=== PATIENT | male | born 1960 | race Caucasian/White ===

== ENCOUNTER 2018-01-15 12:53 | Emergency (ER) | payer MEDICARE, MEDICAID ==
[~2018-01-15] VITALS: Ht 172.7 cm; Wt 104.5 kg
[~2018-01-15 12:53] MED LIST: DOXE10CA2 PO; ESOM40CA PO; FERR142T6 PO; HYDR-3095 PO; LOP25T PO; NOR5T PO; NORT10CA81 CORPAK; OMEP-84 PO; TIZA4CAP6 PO
[2018-01-15 13:46] LABS: BASOPHILS # (AUTO) 0.1 X10'3 (0-0.2); BASOPHILS % (AUTO) 0.6 % (0-1); EOSINOPHILS # (AUTO) 0.3 X10'3 (0-0.9); EOSINOPHILS % (AUTO) 3.4 % (0-6); HEMATOCRIT 28.6 % (42.0-52.0); HEMOGLOBIN 9.2 g/dl (14.0-17.9); LYMPHOCYTES # (AUTO) 1.1 X10'3 (1.1-4.8); MEAN CORPUSCULAR HEMOGLOBIN 22.3 PG (27.0-31.0); MEAN CORPUSCULAR HGB CONC 32.1 % (33.0-36.5); MEAN CORPUSCULAR VOLUME 69.5 FL (78-98); MONOCYTES # (AUTO) 0.6 X10'3 (0-0.9); MONOCYTES % (AUTO) 6.3 % (2-12); NEUTROPHILS % (AUTO) 78.7 % (42-75); PLATELET COUNT 359 X10'3 (140-440); RED BLOOD COUNT 4.12 X10'6 (4.70-6.10); RED CELL DISTRIBUTION WIDTH 19.9 % (11.5-14.5); WHITE BLOOD COUNT 10.2 X10'3 (4.5-11.0)
[2018-01-15 13:55] LABS: PROTHROMBIN TIME 10.1 SECONDS (9.0-12.0)
[2018-01-15 14:00] LABS: ALANINE AMINOTRANSFERASE 18 U/L (12-78); ALBUMIN/GLOBULIN RATIO 0.7 (1.1-1.5); ALKALINE PHOSPHATASE 151 IU/L (46-116); ANION GAP 8 (8-16); ASPARTATE AMINO TRANSFERASE 21 U/L (10-37); BILIRUBIN,TOTAL 0.3 MG/DL (0.1-1.0); BLOOD UREA NITROGEN 6 MG/DL (7-18); BUN/CREATININE RATIO 5.5 (5.4-32.0); CALCIUM 9.6 MG/DL (8.5-10.1); CHLORIDE 99 MMOL/L (99-107); GLUCOSE 147 MG/DL (70-104); POTASSIUM 3.4 MMOL/L (3.5-5.1); SODIUM 138 MMOL/L (135-145); TOTAL CARBON DIOXIDE 30.7 MMOL/L (24-32); TOTAL PROTEIN 7.6 G/DL (6.4-8.2); eGFR 69 ML/MIN
[2018-01-15] MEDS ORDERED: normal saline 1000ML IV soln IVB ONE (14:05)
[2018-01-15] MEDS ORDERED: ondansetron 4mg rapidly disintigrating tab PO ONE (14:05)
[2018-01-15 14:25] LABS: ANISOCYTOSIS 2+; ELLIPTOCYTES FEW; HYPOCHROMASIA 1+; MICROCYTOSIS 2+; PLATELET ESTIMATE NORMAL; POIKILOCYTOSIS 1+
[2018-01-15 14:26] LABS: POLYCHROMASIA FEW; TEAR DROP CELLS 1+
[2018-01-15 14:27] LABS: STOMATOCYTES FEW
[2018-01-15 14:53] VITALS: BP 133/104
[2018-01-16 16:33] LABS: OCCULT BLOOD STOOL NEGATIVE (Neg)
== END 2018-01-15 15:22 | disposition home or self-care (01) ==
LOC: ER 12:54
DX: E86.0 Dehydration (principal); E87.6 Hypokalemia; R11.0 Nausea; G89.29 Other chronic pain; Z98.890 Other specified postprocedural states; Z79.899 Other long term (current) drug therapy
CPT/HCPCS: 36415; 80053; 82272; 85025; 85610; 86885; 86900; 86901; 96360; 99284; J7030; 86870; 86902; 86905

== ENCOUNTER 2018-05-21 13:44 | Inpatient (IN) | payer MEDICARE, MEDICAID ==
[~2018-05-21] VITALS: Ht 172.7 cm; Wt 105.9 kg
[2018-05-21 14:11] LABS: BASOPHILS # (AUTO) 0.1 X10'3 (0-0.2); BASOPHILS % (AUTO) 0.6 % (0-1); EOSINOPHILS # (AUTO) 0.3 X10'3 (0-0.9); EOSINOPHILS % (AUTO) 2.7 % (0-6); HEMATOCRIT 34.3 % (42.0-52.0); HEMOGLOBIN 11.2 g/dl (14.0-17.9); LYMPHOCYTES # (AUTO) 1.4 X10'3 (1.1-4.8); MEAN CORPUSCULAR HEMOGLOBIN 26.9 PG (27.0-31.0); MEAN CORPUSCULAR HGB CONC 32.7 % (33.0-36.5); MEAN CORPUSCULAR VOLUME 82.2 FL (78-98); MEAN PLATELET VOLUME 8.6 FL (7.4-10.4); MONOCYTES # (AUTO) 1.6 X10'3 (0-0.9); MONOCYTES % (AUTO) 14.9 % (2-12); NEUTROPHILS # (AUTO) 7.2 X10'3 (1.8-7.7); NEUTROPHILS % (AUTO) 68.8 % (42-75); PLATELET COUNT 275 X10'3 (140-440); RED BLOOD COUNT 4.18 X10'6 (4.70-6.10); RED CELL DISTRIBUTION WIDTH 15.8 % (11.5-14.5); WHITE BLOOD COUNT 10.5 X10'3 (4.5-11.0)
[2018-05-21 14:21] LABS: INR 1.1 INR; PARTIAL THROMBOPLASTIN TIME 28 SECONDS (22-32); PROTHROMBIN TIME 10.9 SECONDS (9.0-12.0)
[2018-05-21 14:27] LABS: ALANINE AMINOTRANSFERASE 16 U/L (12-78); ALBUMIN 2.9 G/DL (3.4-5.0); ALBUMIN/GLOBULIN RATIO 0.7 (1.1-1.5); ALKALINE PHOSPHATASE 157 IU/L (46-116); ANION GAP 8 (8-16); ASPARTATE AMINO TRANSFERASE 21 U/L (10-37); BILIRUBIN,TOTAL 0.3 MG/DL (0.1-1.0); BLOOD UREA NITROGEN 8 MG/DL (7-18); BUN/CREATININE RATIO 6.7 (5.4-32.0); CALCIUM 9.2 MG/DL (8.5-10.1); CHLORIDE 101 MMOL/L (99-107); CREATININE 1.19 MG/DL (0.60-1.10); GLUCOSE 88 MG/DL (70-104); SODIUM 138 MMOL/L (135-145); TOTAL CARBON DIOXIDE 28.6 MMOL/L (24-32); TOTAL PROTEIN 6.9 G/DL (6.4-8.2); eGFR 63 ML/MIN
[2018-05-21] MEDS ORDERED: potassium Cl 10 mEq/100mL bag IV ONE (14:45)
[2018-05-21 14:58] LABS: LIPASE 75 U/L (73-393)
[2018-05-21] MEDS ORDERED: PRAV10TA39 PO (15:00)
[2018-05-21] MEDS ORDERED: LORA0.5T PO (15:00)
[2018-05-21] MEDS ORDERED: HYDR-3972 (15:00)
[2018-05-21] MEDS ORDERED: MONT10TA24 PO (15:00)
[2018-05-21] MEDS ORDERED: POTA10TA19 PO (15:00)
[2018-05-21] MEDS ORDERED: FURO-150 PO (15:00)
[2018-05-21] MEDS ORDERED: METF500T6 (15:00)
[2018-05-21] MEDS ORDERED: METO50TA16 (15:00)
[2018-05-21] MEDS ORDERED: HYDR-3686 (15:00)
[2018-05-21] MEDS ORDERED: TIZA-248 (15:00)
[2018-05-21] MEDS: nitroGLYCERIN 0.4mg SUBLingual tab SL PRN ×2 (15:04→15:16)
[2018-05-21] MEDS: potassium 10mEq/100ml NS w/LIDOcaine (10mg/bag) IV SCH ×2 (15:10→16:17)
[2018-05-21] MEDS ORDERED: ondansetron/PF 4mg/2ml inj IV ONE (15:25)
[2018-05-21] MEDS ORDERED: morphine 4 MG/ML inj SYRINge IV ONE (15:50)
[2018-05-21] MEDS ORDERED: regadenoson 0.4mg/5ml syringe IV PRN (17:20)
[2018-05-21] MEDS ORDERED: potassium Cl 40MEQ/NS 500ml 500 ML IV PRN ×2 (17:20)
[2018-05-21] MEDS ORDERED: magnesium Cl slow-release 64mg tablet PO PRN (17:20)
[2018-05-21] MEDS ORDERED: mag hydrox/Alum hydrox/simeth 30ml oral suspension PO PRN (17:20)
[2018-05-21] MEDS ORDERED: magnesium 1gm/100ml D5W IVPB 100 ML IV PRN (17:20)
[2018-05-21] MEDS ORDERED: metoprolol tartrate 1mg/ml inj IV PRN (17:20)
[2018-05-21] MEDS ORDERED: magnesium hydroxide 30ml (MOM) UD suspension PO PRN (17:20)
[2018-05-21] MEDS ORDERED: nitroGLYCERIN 0.4mg SUBLingual tab SL PRN ×2 (17:20)
[2018-05-21] MEDS ORDERED: morphine 4 MG/ML inj SYRINge IV PRN (17:20)
[2018-05-21] MEDS ORDERED: acetaminophen 325mg tablet PO PRN (17:20)
[2018-05-21] MEDS: K and/or MAG REPLACEMENT MC SCH (17:20)
[2018-05-21] MEDS ORDERED: magnesium 4gm in 100ml NS 100 ML IV PRN (17:20)
[2018-05-21] MEDS ORDERED: potassium Cl 20 mEq SR tablet PO PRN (17:20)
[2018-05-21] MEDS ORDERED: CAFFEINE CITRATE 60 MG/3 ML injection vial IV PRN (17:20)
[2018-05-21] MEDS ORDERED: cloNIDine 0.1 mg tablet PO ONE (17:50)
[2018-05-21 18:09] LABS: H PYLORI ANTIBODY NEGATIVE (Neg)
[2018-05-21] MEDS: pantoprazole 40 MG vial IV SCH (18:15)
[2018-05-21] MEDS: normal saline 1000ml 1,000 ML IV SCH (18:15)
[2018-05-21] MEDS ORDERED: dextrose ORAL solution 15 GM/59 ML bottle PO PRN ×2 (18:30)
[2018-05-21] MEDS ORDERED: MESSAGE TO PHARMACY PO ONE (18:30)
[2018-05-21] MEDS ORDERED: glucagon, human recombinant 1mg kit SUBCUT PRN (18:30)
[2018-05-21] MEDS ORDERED: insulin Lispro (HumaLOG) vial - multi-dose SQ SCH (18:30)
[2018-05-21] MEDS ORDERED: dextrose 50%-water 50ml dispensing syringe IV PRN ×2 (18:30)
[2018-05-21] MEDS ORDERED: doxepin 10mg capsule PO PRN (18:35)
[2018-05-21] MEDS ORDERED: LORazepam 0.5 MG tablet PO PRN (18:35)
[2018-05-21] MEDS: ondansetron/PF 4mg/2ml inj IV PRN (19:07)
[2018-05-21] MEDS: amLODIPine 5mg tablet PO SCH (19:46)
[2018-05-21] MEDS: morphine 4 MG/ML inj SYRINge IV PRN (19:47)
[2018-05-21 20:13] LABS: HEMOGLOBIN A1C 5.1 % (4.5-6.2)
[2018-05-21 21:00] VITALS: BP 184/94
[2018-05-21] MEDS: insulin glargine (Lantus) pen - multi-dose SQ SCH (21:00)
[2018-05-21] MEDS: metoprolol tartrate 50mg tablet PO SCH (21:53)
[2018-05-21] MEDS: sucralfate 1 gm tablet PO SCH (21:55)
[2018-05-21] MEDS: HYDROcodone/acetaminophen 10/325mg tab PO SCH (23:02)
[2018-05-22] MEDS: temazepam 15mg capsule PO PRN ×2 (00:11→22:37)
[2018-05-22 02:00] VITALS: BP 162/78
[2018-05-22 02:55] LABS: HEMATOCRIT 29.5 % (42.0-52.0); HEMOGLOBIN 9.6 g/dl (14.0-17.9); MEAN CORPUSCULAR HEMOGLOBIN 27.1 PG (27.0-31.0); MEAN CORPUSCULAR HGB CONC 32.7 % (33.0-36.5); MEAN CORPUSCULAR VOLUME 82.8 FL (78-98); MEAN PLATELET VOLUME 9.1 FL (7.4-10.4); PLATELET COUNT 187 X10'3 (140-440); RED BLOOD COUNT 3.56 X10'6 (4.70-6.10); RED CELL DISTRIBUTION WIDTH 15.6 % (11.5-14.5); WHITE BLOOD COUNT 7.5 X10'3 (4.5-11.0)
[2018-05-22 04:22] LABS: ALBUMIN 2.3 G/DL (3.4-5.0); ANION GAP 9 (8-16); BLOOD UREA NITROGEN 7 MG/DL (7-18); BUN/CREATININE RATIO 6.8 (5.4-32.0); CALCIUM 8.3 MG/DL (8.5-10.1); CHLORIDE 104 MMOL/L (99-107); CHOL/HDL RATIO 3.3 (0.00-4.99); CHOLESTEROL 182 MG/DL (0-200); CREATININE 1.03 MG/DL (0.60-1.10); GLUCOSE 109 MG/DL (70-104); HDL CHOLESTEROL 55 MG/DL (35-60); LDL CHOLESTEROL 110 MG/DL (50-100); MAGNESIUM 1.6 MG/DL (1.5-2.4); PHOSPHORUS 3.1 MG/DL (2.3-4.5); SODIUM 139 MMOL/L (135-145); TOTAL CARBON DIOXIDE 26.2 MMOL/L (24-32); TRIGLYCERIDES 151 MG/DL (20-135); eGFR 74 ML/MIN
[2018-05-22 04:23] LABS: POTASSIUM 2.8 MMOL/L (3.5-5.1)
[2018-05-22] MEDS: potassium Cl 20 mEq SR tablet PO PRN ×3 (05:08→12:42)
[2018-05-22] MEDS: normal saline 1000ml 1,000 ML IV SCH (05:08)
[2018-05-22 06:00] VITALS: BP 153/71
[2018-05-22] MEDS: potassium chloride 10mEq ER tablet PO SCH (08:00)
[2018-05-22] MEDS ORDERED: furosemide 20MG tablet PO SCH (08:00)
[2018-05-22] MEDS ORDERED: pravastatin 10mg tablet PO SCH (08:00)
[2018-05-22] MEDS: K and/or MAG REPLACEMENT MC SCH (08:00)
[2018-05-22] MEDS: pantoprazole 40 MG vial IV SCH (08:02)
[2018-05-22] MEDS: HYDROcodone/acetaminophen 10/325mg tab PO SCH ×3 (08:03→20:30)
[2018-05-22] MEDS: sucralfate 1 gm tablet PO SCH ×4 (08:04→20:30)
[2018-05-22] MEDS: montelukast 10mg tablet PO SCH (08:05)
[2018-05-22] MEDS: metoprolol tartrate 50mg tablet PO SCH ×2 (08:05→20:30)
[2018-05-22] MEDS: amLODIPine 5mg tablet PO SCH (08:05)
[2018-05-22] MEDS: tizanidine 4mg tablet PO SCH (08:06)
[2018-05-22] MEDS: atorvastatin 10mg tablet PO SCH (08:06)
[2018-05-22] MEDS: morphine 4 MG/ML inj SYRINge IV PRN ×4 (08:14→20:30)
[2018-05-22 11:00] VITALS: BP 122/61
[2018-05-22 15:00] VITALS: BP 173/88
[2018-05-22 19:00] VITALS: BP 154/70
[2018-05-22] MEDS: insulin glargine (Lantus) pen - multi-dose SQ SCH (21:00)
[2018-05-22 23:00] VITALS: BP 163/71
[2018-05-23] VITALS (13 sets, daily range): BP systolic 115–185; BP diastolic 61–100
[2018-05-23 06:05] LABS: HEMATOCRIT 31.7 % (42.0-52.0); HEMOGLOBIN 10.5 g/dl (14.0-17.9); MEAN CORPUSCULAR HEMOGLOBIN 27.5 PG (27.0-31.0); MEAN CORPUSCULAR HGB CONC 33.1 % (33.0-36.5); MEAN CORPUSCULAR VOLUME 83.1 FL (78-98); MEAN PLATELET VOLUME 8.7 FL (7.4-10.4); PLATELET COUNT 246 X10'3 (140-440); RED BLOOD COUNT 3.81 X10'6 (4.70-6.10); RED CELL DISTRIBUTION WIDTH 15.5 % (11.5-14.5); WHITE BLOOD COUNT 7.5 X10'3 (4.5-11.0)
[2018-05-23 06:26] LABS: ALBUMIN 2.6 G/DL (3.4-5.0); ANION GAP 7 (8-16); BLOOD UREA NITROGEN 10 MG/DL (7-18); BUN/CREATININE RATIO 7.8 (5.4-32.0); CALCIUM 8.7 MG/DL (8.5-10.1); CHLORIDE 106 MMOL/L (99-107); CREATININE 1.29 MG/DL (0.60-1.10); GLUCOSE 101 MG/DL (70-104); MAGNESIUM 1.5 MG/DL (1.5-2.4); PHOSPHORUS 3.2 MG/DL (2.3-4.5); POTASSIUM 3.8 MMOL/L (3.5-5.1); SODIUM 141 MMOL/L (135-145); TOTAL CARBON DIOXIDE 28.4 MMOL/L (24-32); eGFR 57 ML/MIN
[2018-05-23] MEDS: sucralfate 1 gm tablet PO SCH ×3 (06:49→16:00)
[2018-05-23] MEDS: HYDROcodone/acetaminophen 10/325mg tab PO SCH ×2 (07:10→12:12)
[2018-05-23] MEDS: amLODIPine 5mg tablet PO SCH (07:10)
[2018-05-23] MEDS: metoprolol tartrate 50mg tablet PO SCH (07:10)
[2018-05-23] MEDS: atorvastatin 10mg tablet PO SCH (07:11)
[2018-05-23] MEDS: tizanidine 4mg tablet PO SCH (07:11)
[2018-05-23] MEDS: potassium chloride 10mEq ER tablet PO SCH (07:11)
[2018-05-23] MEDS: montelukast 10mg tablet PO SCH (07:11)
[2018-05-23] MEDS ORDERED: pantoprazole 40mg Tablet.DR PO SCH (07:30)
[2018-05-23] MEDS: K and/or MAG REPLACEMENT MC SCH (08:00)
[2018-05-23] MEDS ORDERED: regadenoson 0.4mg/5ml syringe IV ONE (09:03)
[2018-05-23] MEDS ORDERED: CAFFEINE CITRATE 60 MG/3 ML injection vial IV ONE (09:03)
[2018-05-23] MEDS: ondansetron/PF 4mg/2ml inj IV PRN (09:28)
[2018-05-23] MEDS ORDERED: ondansetron/PF 4mg/2ml inj ONE (09:28)
== END 2018-05-23 21:28 | disposition home or self-care (01) | DRG 641 ==
LOC: ER 13:44 → ED HOLD 17:49 → PCU 3S 21:09 → CMPBEDREQ 21:25 → PCU 3S 05-22 16:55
PROVIDERS: ADMIT Family Medicine; ATTEND Internal Medicine
PROC: 4A02XM4 Measurement of Cardiac Total Activity, External Approach (ICD-10-PCS; principal; 2018-05-23)
PROC: 3E073KZ Introduction of Other Diagnostic Substance into Coronary Artery, Percutaneous Approach (ICD-10-PCS; 2018-05-23)
DX: E87.6 Hypokalemia (principal); N17.9 Acute kidney failure, unspecified; R07.89 Other chest pain; I11.9 Hypertensive heart disease without heart failure; I16.0 Hypertensive urgency; K22.70 Barrett's esophagus without dysplasia; E78.00 Pure hypercholesterolemia, unspecified; E78.5 Hyperlipidemia, unspecified; G47.00 Insomnia, unspecified; G89.29 Other chronic pain; E11.21 Type 2 diabetes mellitus with diabetic nephropathy; F41.9 Anxiety disorder, unspecified; R16.1 Splenomegaly, not elsewhere classified; M54.9 Dorsalgia, unspecified; R10.11 Right upper quadrant pain; E66.9 Obesity, unspecified; I08.1 Rheumatic disorders of both mitral and tricuspid valves; K83.8 Other specified diseases of biliary tract; Z90.5 Acquired absence of kidney; Z79.899 Other long term (current) drug therapy; Z79.84 Long term (current) use of oral hypoglycemic drugs; Z80.0 Family history of malignant neoplasm of digestive organs; Z68.35 Body mass index [BMI] 35.0-35.9, adult
CPT/HCPCS: 36415; 71045; 76700; 78451; 78452; 80048; 80053; 80061; 82948; 83036; 83690; 83735; 83880; 84100; 84132; 84484; 85025; 85027; 85610; 85730; 86677; 87070; 93005; 93017; 93306; 96361; 96374; 96375; 99285; A9500; C9113; J1815; J2270; J2405; J3480; J7030

== ENCOUNTER 2021-04-12 10:17 | Emergency (ER) | payer MEDICARE, MEDICAID ==
[~2021-04-12] VITALS: Ht 172.7 cm; Wt 109.1 kg
[~2021-04-12 10:17] MED LIST changes: +ALBU18HF2 PO; +AMLO5TAB16 PO; -DOXE10CA2 PO; -ESOM40CA PO; -FERR142T6 PO; +FOLI0.4T6 PO; +FURO40TA4 PO; -HYDR-3095 PO; +HYDR-3686 PO; +HYDR-3972 PO; +LISI10TA27 PO; -LOP25T PO; +MONT10TA32 PO; +MULT-1074 PO; -NOR5T PO; -NORT10CA81 CORPAK; -OMEP-84 PO; +OMEP40CA21 PO; +POTA10TA36 PO; +PRAV10TA39 PO; +THIA50TA10 PO; -TIZA4CAP6 PO; +TIZA4TAB5 PO
[2021-04-12] MEDS ORDERED: LIDOcaine 2% 10ml TOPICAL JELLY (Urojet) TP ONE (10:45)
[2021-04-12] MEDS ORDERED: tamsulosin 0.4mg capsule PO ONE (11:04)
[2021-04-12 11:17] LABS: BASOPHILS % (AUTO) 0.1 % (0-1); EOSINOPHILS # (AUTO) 0.2 X10'3 (0-0.9); EOSINOPHILS % (AUTO) 4.2 % (0-6); HEMATOCRIT 25.4 % (42.0-52.0); HEMOGLOBIN 8.2 g/dl (14.0-17.9); LYMPHOCYTES % (AUTO) 16.2 % (21-51); MEAN CORPUSCULAR HEMOGLOBIN 27.3 PG (27.0-31.0); MEAN CORPUSCULAR HGB CONC 32.4 g/dL (33.0-36.5); MEAN CORPUSCULAR VOLUME 84.4 FL (78-98); MEAN PLATELET VOLUME 7.1 FL (7.4-10.4); MONOCYTES # (AUTO) 1.2 X10'3 (0-0.9); MONOCYTES % (AUTO) 20.8 % (2-12); NEUTROPHILS # (AUTO) 3.5 X10'3 (1.8-7.7); NEUTROPHILS % (AUTO) 58.7 % (42-75); PLATELET COUNT 167 X10'3 (140-440); RED BLOOD COUNT 3.01 X10'6 (4.70-6.10); RED CELL DISTRIBUTION WIDTH 15.6 % (11.5-14.5); WHITE BLOOD COUNT 5.9 X10'3 (4.5-11.0)
[2021-04-12 11:32] LABS: ALANINE AMINOTRANSFERASE 44 U/L (12-78); ALBUMIN/GLOBULIN RATIO 1.2 (1.1-1.5); ALKALINE PHOSPHATASE 154 IU/L (46-116); ANION GAP 8 (8-16); ASPARTATE AMINO TRANSFERASE 37 U/L (10-37); BILIRUBIN,TOTAL 0.5 MG/DL (0.1-1.0); BLOOD UREA NITROGEN 26 MG/DL (7-18); BUN/CREATININE RATIO 17.6 (5.4-32.0); CALCIUM 7.9 MG/DL (8.5-10.1); CHLORIDE 96 MMOL/L (99-107); CREATININE 1.48 MG/DL (0.60-1.10); GLUCOSE 100 MG/DL (70-104); SODIUM 133 MMOL/L (135-145); TOTAL CARBON DIOXIDE 29.4 MMOL/L (24-32); TOTAL PROTEIN 5.6 G/DL (6.4-8.2); eGFR 48 ML/MIN
[2021-04-12 12:08] LABS: CLARITY,URINE CLEAR (Clear); COLOR,URINE STRAW (Yellow); GLUCOSE, URINE NEGATIVE (Neg); KETONES,URINE NEGATIVE (Neg); LEUKOCYTE ESTERASE ,URINE NEGATIVE (Neg); NITRITES, URINE NEGATIVE (Neg); OCCULT BLOOD,URINE NEGATIVE (Neg); PH,URINE 6.5 (4.8-8.0); PROTEIN,URINE NEGATIVE (Neg); UROBILINOGEN,URINE 0.2 E.U/dL (0.2-1.0)
[2021-04-12 12:12] LABS: UA COLLECTION TYPE FOLEY CATH
[2021-04-12] MEDS ORDERED: FLO0.4C PO (12:32)
[2021-04-12 13:00] VITALS: BP 141/69
== END 2021-04-12 13:02 | disposition home or self-care (01) ==
LOC: ER 10:18
DX: R33.9 Retention of urine, unspecified (principal); I11.0 Hypertensive heart disease with heart failure; J44.9 Chronic obstructive pulmonary disease, unspecified; D64.9 Anemia, unspecified; E11.9 Type 2 diabetes mellitus without complications; Z79.899 Other long term (current) drug therapy
CPT/HCPCS: 36415; 51702; 80053; 81003; 85025; 99284

== ENCOUNTER 2021-06-01 12:55 | Emergency (ER) | payer MEDICARE, MEDICAID ==
[~2021-06-01] VITALS: Ht 172.7 cm; Wt 106.8 kg
[~2021-06-01 12:55] MED LIST changes: -FOLI0.4T6 PO
[2021-06-01 15:21] LABS: CLARITY,URINE CLEAR (Clear); COLOR,URINE STRAW (Yellow); GLUCOSE, URINE NEGATIVE (Neg); KETONES,URINE NEGATIVE (Neg); LEUKOCYTE ESTERASE ,URINE NEGATIVE (Neg); NITRITES, URINE NEGATIVE (Neg); OCCULT BLOOD,URINE NEGATIVE (Neg); PH,URINE 7.5 (4.8-8.0); PROTEIN,URINE 30 mg/dl (Neg); UA COLLECTION TYPE CLN CATCH MIDSTREAM; UROBILINOGEN,URINE 0.2 E.U/dL (0.2-1.0)
[2021-06-01 15:21] LABS: HEMOGLOBIN 7.8 g/dl (14.0-17.9); LYMPHOCYTES # (AUTO) 0.5 X10'3 (1.1-4.8); LYMPHOCYTES % (AUTO) 11.7 % (21-51); MEAN CORPUSCULAR HEMOGLOBIN 25.2 PG (27.0-31.0); MEAN CORPUSCULAR HGB CONC 32.5 g/dL (33.0-36.5); MEAN CORPUSCULAR VOLUME 77.5 FL (78-98); MEAN PLATELET VOLUME 8.5 FL (7.4-10.4); MONOCYTES % (AUTO) 24.4 % (2-12); NEUTROPHILS # (AUTO) 2.5 X10'3 (1.8-7.7); NEUTROPHILS % (AUTO) 61.9 % (42-75); PLATELET COUNT 159 X10'3 (140-440); RED BLOOD COUNT 3.09 X10'6 (4.70-6.10); RED CELL DISTRIBUTION WIDTH 16.6 % (11.5-14.5); WHITE BLOOD COUNT 4.1 X10'3 (4.5-11.0)
[2021-06-01 15:26] LABS: PARTIAL THROMBOPLASTIN TIME 37 SECONDS (22-32)
[2021-06-01 15:28] LABS: ALANINE AMINOTRANSFERASE 20 U/L (12-78); ALBUMIN 3.2 G/DL (3.4-5.0); ALKALINE PHOSPHATASE 257 IU/L (46-116); ANION GAP 9 (8-16); ASPARTATE AMINO TRANSFERASE 23 U/L (10-37); BILIRUBIN,TOTAL 0.8 MG/DL (0.1-1.0); BLOOD UREA NITROGEN 17 MG/DL (7-18); BUN/CREATININE RATIO 13.4 (5.4-32.0); CALCIUM 8.3 MG/DL (8.5-10.1); CHLORIDE 91 MMOL/L (99-107); CREATININE 1.27 MG/DL (0.60-1.10); GLUCOSE 112 MG/DL (70-104); MAGNESIUM 2.2 MG/DL (1.5-2.4); POTASSIUM 3.7 MMOL/L (3.5-5.1); SODIUM 130 MMOL/L (135-145); TOTAL CARBON DIOXIDE 29.8 MMOL/L (24-32); TOTAL PROTEIN 6.3 G/DL (6.4-8.2); eGFR 57 ML/MIN
[2021-06-01 15:28] LABS: MUCUS STRANDS NONE SEEN /LPF (Neg); SQUAMOUS EPITHELIAL CELL,UR FEW /LPF (FEW); TRANSITIONAL EPI CELLS,URINE FEW /HPF
[2021-06-01 15:29] LABS: BACTERIA,URINE NONE SEEN /HPF (Neg); RBC,URINE 0-2 /HPF (0-2); WBC,URINE NONE SEEN /HPF (0-4)
[2021-06-01 15:43] LABS: ANISOCYTOSIS 1+; HYPOCHROMASIA 1+; MICROCYTOSIS 1+; PLATELET ESTIMATE NORMAL; POLYCHROMASIA 1+
[2021-06-01 15:44] LABS: ELLIPTOCYTES FEW; SCHISTOCYTES FEW
[2021-06-01] MEDS ORDERED: furosemide 10 MG/1 ML 10ml inj IV ONE (16:15)
[2021-06-01] MEDS ORDERED: ipratropium/albuterol 3ml nebule NEB ONE (16:25)
[2021-06-01 17:12] VITALS: BP 129/108
== END 2021-06-01 17:42 | disposition home or self-care (01) ==
LOC: ER 12:56
DX: I11.0 Hypertensive heart disease with heart failure (principal); I50.9 Heart failure, unspecified; R53.1 Weakness; I48.91 Unspecified atrial fibrillation; J44.9 Chronic obstructive pulmonary disease, unspecified; E11.9 Type 2 diabetes mellitus without complications; E78.00 Pure hypercholesterolemia, unspecified; Z79.899 Other long term (current) drug therapy; G89.29 Other chronic pain; Z90.5 Acquired absence of kidney
CPT/HCPCS: 36415; 71045; 80053; 81001; 83735; 85008; 85025; 85610; 85730; 86885; 86900; 86901; 93005; 94640; 96374; 99285; J1940; 94760